=== PATIENT | female | born 1955 | race Native Hawaiian/Other Pacific Islander ===

== ENCOUNTER 2017-01-07 09:42 | Outpatient (CLI) | payer OTHER | END 2017-01-07 11:00 | disposition home or self-care (01) | LOC: RESP 09:42 | DX: R06.02 Shortness of breath (principal) | CPT/HCPCS: 94640; 94664 ==

== ENCOUNTER 2017-03-27 09:32 | Outpatient (CLI) | payer OTHER | END 2017-03-27 10:35 | disposition home or self-care (01) | LOC: RAD 09:32 | DX: D38.0 Neoplasm of uncertain behavior of larynx (principal); R13.19 Other dysphagia ==

== ENCOUNTER 2017-12-21 15:04 | Outpatient (CLI) | payer OTHER | END 2017-12-21 21:26 | disposition home or self-care (01) | LOC: RAD 15:04 | DX: R13.12 Dysphagia, oropharyngeal phase (principal) ==

== ENCOUNTER 2018-02-02 09:55 | Outpatient (CLI) | payer OTHER | END 2018-02-02 21:51 | disposition home or self-care (01) | LOC: RAD 09:55 | DX: M25.521 Pain in right elbow (principal) ==

== ENCOUNTER 2018-02-17 11:55 | Outpatient (CLI) | payer OTHER | END 2018-02-17 23:30 | disposition home or self-care (01) | LOC: RAD 11:55 | DX: R13.19 Other dysphagia (principal) ==

== ENCOUNTER 2019-09-28 08:18 | Outpatient (CLI) | payer OTHER | END 2019-09-28 20:52 | disposition home or self-care (01) | LOC: RAD 08:18 | DX: M85.89 Other specified disorders of bone density and structure, multiple sites (principal) ==

== ENCOUNTER 2020-09-28 10:00 | Outpatient (CLI) | payer OTHER | END 2020-09-28 19:34 | disposition home or self-care (01) | LOC: CT 10:00 | PROVIDERS: ATTEND Orthopaedic Surgery | DX: T84.030A Mechanical loosening of internal right hip prosthetic joint, initial encounter (principal) ==

== ENCOUNTER 2020-10-08 10:09 | Outpatient (CLI) | payer OTHER ==
[2020-10-08 11:11] LABS: PLATELET COUNT 177 K/uL (152-353)
== END 2020-10-08 22:49 | disposition home or self-care (01) ==
LOC: LABW 10:09
PROVIDERS: ATTEND Orthopaedic Surgery
DX: M25.561 Pain in right knee (principal); Z96.651 Presence of right artificial knee joint; M76.51 Patellar tendinitis, right knee; Z79.899 Other long term (current) drug therapy
CPT/HCPCS: 36415; 85027; 85652; 86140

== ENCOUNTER 2020-12-13 09:34 | Outpatient (CLI) | payer OTHER | END 2020-12-13 20:25 | disposition home or self-care (01) | LOC: MRI 09:34 | PROVIDERS: ATTEND Orthopaedic Surgery | DX: M54.12 Radiculopathy, cervical region (principal); M54.2 Cervicalgia ==

== ENCOUNTER 2021-04-04 17:16 | Emergency (ER) | payer OTHER ==
[~2021-04-04] VITALS: Ht 167.6 cm; Wt 99.8 kg
[2021-04-04 18:03] VITALS: BP 119/72; TEMP 98.5
[2021-04-04 19:53] LABS: PLATELET COUNT 186 K/uL (152-353)
[2021-04-04 20:00] LABS: SODIUM 145 mmol/L (136-145)
== END 2021-04-04 23:24 | disposition home or self-care (01) ==
LOC: ED 17:16
PROVIDERS: Emergency Medicine Emergency Medical Services
DX: U07.1 COVID-19 (principal); J21.9 Acute bronchiolitis, unspecified
CPT/HCPCS: 36415; 36600; 80053; 82805; 84484; 85027; 85379; 86140; 87040; 93005; 96360; 96365; 96375; 99284; J0696; J2405; J2930